=== PATIENT | male | born 1995 | race Caucasian/White ===

== ENCOUNTER 2021-08-18 22:02 | Emergency (ER) | payer SELFPAY ==
[2021-08-18] MEDS ORDERED: morphine INJ 10 MG/ML 1ML (SYR OR VIAL) IVP STA (22:21)
[2021-08-18 22:25] LABS: BASOPHILS # (AUTO) 0.1 10^3/uL (0.0-0.1); BASOPHILS % (AUTO) 1 % (0-10); EOSINOPHILS # (AUTO) 0.5 10^3/uL (0.0-0.3); EOSINOPHILS % (AUTO) 4 % (0-10); HEMATOCRIT 47 % (40-54); HEMOGLOBIN 15.5 g/dL (13.3-17.7); LYMPHOCYTES # (AUTO) 3.4 X 10^3 (1.0-4.0); LYMPHOCYTES % (AUTO) 30 % (12-44); MEAN CORPUSCULAR HEMOGLOBIN 29 pg (25-34); MEAN CORPUSCULAR HGB CONC 33 g/dL (32-36); MEAN CORPUSCULAR VOLUME 87 fL (80-99); MEAN PLATELET VOLUME 9.3 fL (9.0-12.2); MONOCYTES % (AUTO) 9 % (0-12); NEUTROPHILS # (AUTO) 6.6 X 10^3 (1.8-7.8); NEUTROPHILS % (AUTO) 57 % (42-75); PLATELET COUNT 418 10^3/uL (130-400); WHITE BLOOD COUNT 11.6 10^3/uL (4.3-11.0)
[2021-08-18] MEDS ORDERED: NS IV 1000 ML 1,000 ML IV SCH (22:30)
[2021-08-18] MEDS ORDERED: ONDANSETRON 4 MG/2 ML (SDV) Z0FRAN IVP ONE (22:30)
[2021-08-18] MEDS ORDERED: KETOROLAC 30 MG/ML VIAL IVP ONE (22:30)
[2021-08-18 22:39] LABS: ALBUMIN 3.8 GM/DL (3.2-4.5); BILIRUBIN,TOTAL 0.2 MG/DL (0.1-1.0); CREATININE SERUM 1.05 MG/DL (0.60-1.30); POTASSIUM 3.7 MMOL/L (3.6-5.0); TOTAL PROTEIN 7.6 GM/DL (6.4-8.2)
--- NOTE | 2021-08-18 22:51 | Diagnostic Imaging Report ---
PROCEDURE: CT abdomen and pelvis without contrast. TECHNIQUE: Multiple contiguous axial images were obtained through the abdomen and pelvis without the use of intravenous contrast. Auto Exposure Controls were utilized during the CT exam to meet ALARA standards for radiation dose reduction. INDICATION: Right flank pain. COMPARISON: There is no prior study available for comparison. FINDINGS: There is a 3.5 mm calculus in the proximal right ureter. The ureter proximal to the calculus is slightly dilated and there is mild hydronephrosis of the right kidney. This appearance would be consistent with partial obstruction of the right collecting system due to the aforementioned calculus. There is no evidence for nephrolithiasis or urolithiasis on the left. The urinary bladder is grossly unremarkable. There is no pelvic mass or free fluid collection evident. The prostate gland is not enlarged. The appendix was not well-visualized but there are no indirect signs of acute appendicitis. The liver, spleen, pancreas, adrenals, aorta and inferior vena cava show no sign of an acute abnormality. The gallbladder is not fully distended. Conversely the stomach is filled with fluid and particulate matter. The lung bases are clear. The bone windows show no sign of a fracture or a destructive lesion. IMPRESSION: 1. There is partial obstruction of the right collecting system due to a 3.5 mm calculus in the proximal right ureter. 2. There is no acute abnormality of the abdomen or pelvis noted otherwise. Dictated by: Dictated on workstation # [id number]
[2021-08-18] MEDS ORDERED: ACHD5005 PO (23:01)
[2021-08-18] MEDS ORDERED: ONDA4TAB11 PO (23:01)
--- NOTE | 2021-08-18 23:01 | ED Abdominal Pain ---
General Chief Complaint: Abdominal/GI Problems Stated Complaint: RT TESTICULAR PAIN;ABD PAIN Nursing Triage Note: Pt complaining of RLQ pain radiating to right flank Source of Information: Patient Exam Limitations: No Limitations History of Present Illness Date Seen by Provider: Aug 18, 2021 Time Seen by Provider: 21:45 Initial Comments Patient is a 25-year-old male who presents with acute onset right flank pain starting 3 hours prior to ED arrival. Pain is mid flank radiates to right groin and testicle. Pain is moderate to severe and is not reproduced with palpation and movement relieved by rest. Associated symptoms include nausea. Pain does wax and wane. No constipation diarrhea, no urinary frequency urgency dysuria or hematuria. No testicular tenderness swelling or masses. No fever chills sweats. No other symptoms or complaints. Timing/Duration: 1-3 Hours Severity/Quality: Dull Location: Flank Radiation: Groin Activities at Onset: Other Modifying Factors: Improves With Other Associated Symptoms: Other Allergies and Home Medications Allergies Coded Allergies: alprazolam (Verified Allergy, Unknown, 08/18/21) Patient Home Medication List Home Medication List Reviewed: Yes Review of Systems Review of Systems Constitutional: no symptoms reported EENTM: See HPI Respiratory: See HPI Cardiovascular: See HPI Gastrointestinal: See HPI Genitourinary: See HPI Musculoskeletal: see HPI Skin: see HPI Psychiatric/Neurological: See HPI Endocrine: See HPI Hematologic/Lymphatic: See HPI All Other Systems Reviewed Negative Unless Noted: Yes Past Szvhviv-Qcwvij-Kpsbua Hx Patient Social History Tobacco Use?: Yes Use of E-Cig and/or Vaping dev: Yes E-Cig or Vaping type used: Nicotine Substance use?: No Alcohol Use?: No Pt feels they are or have been: No Physical Exam Vital Signs Vital Signs - First Documented 08/18/21 22:08 Temp 36.4 Pulse 67 Resp 16 B/P (MAP) 150/78 (102) Pulse Ox 100 O2 Delivery Room Air Capillary Refill : Less Than 3 Seconds Height/Weight/BMI Height: '" Weight: lbs. oz. kg; BMI Method: General Appearance: moderate distress HEENT: PERRL/EOMI Neck: full range of motion Respiratory: lungs clear Cardiovascular: regular rate, rhythm, no edema Gastrointestinal: non tender, soft Back: normal inspection, no CVA tenderness Focused Exam Sepsis Stage: Ruled Out Progress/Results/Core Measures Results/Orders Lab Results Laboratory Tests Test 08/18/21 22:10 Range/Units White Blood Count 11.6 H 4.3-11.0 10^3/uL Red Blood Count 5.40 4.30-5.52 10^6/uL Hemoglobin 15.5 13.3-17.7 g/dL Hematocrit 47 40-54 % Mean Corpuscular Volume 87 80-99 fL Mean Corpuscular Hemoglobin 29 25-34 pg Mean Corpuscular Hemoglobin Concent 33 32-36 g/dL Red Cell Distribution Width 12.8 10.0-14.5 % Platelet Count 418 H 130-400 10^3/uL Mean Platelet Volume 9.3 9.0-12.2 fL Immature Granulocyte % (Auto) 0 % Neutrophils (%) (Auto) 57 42-75 % Lymphocytes (%) (Auto) 30 12-44 % Monocytes (%) (Auto) 9 0-12 % Eosinophils (%) (Auto) 4 0-10 % Basophils (%) (Auto) 1 0-10 % Neutrophils # (Auto) 6.6 1.8-7.8 X 10^3 Lymphocytes # (Auto) 3.4 1.0-4.0 X 10^3 Monocytes # (Auto) 1.0 0.0-1.0 X 10^3 Eosinophils # (Auto) 0.5 H 0.0-0.3 10^3/uL Basophils # (Auto) 0.1 0.0-0.1 10^3/uL Immature Granulocyte # (Auto) 0.0 0.0-0.1 10^3/uL Sodium Level 140 135-145 MMOL/L Potassium Level 3.7 3.6-5.0 MMOL/L Chloride Level 103 98-107 MMOL/L Carbon Dioxide Level 25 21-32 MMOL/L Anion Gap 12 5-14 MMOL/L Blood Urea Nitrogen 13 7-18 MG/DL Creatinine 1.05 0.60-1.30 MG/DL Estimat Glomerular Filtration Rate 88 BUN/Creatinine Ratio 12 Glucose Level 107 H 70-105 MG/DL Calcium Level 9.0 8.5-10.1 MG/DL Corrected Calcium 9.2 8.5-10.1 MG/DL Total Bilirubin 0.2 0.1-1.0 MG/DL Aspartate Amino Transf (AST/SGOT) 22 5-34 U/L Alanine Aminotransferase (ALT/SGPT) 30 0-55 U/L Alkaline Phosphatase 106 40-136 U/L Total Protein 7.6 6.4-8.2 GM/DL Albumin 3.8 3.2-4.5 GM/DL My Orders Orders - VLAD LEES DO Cbc With Automated Diff (08/18/21 22:21) Comprehensive Metabolic Panel (08/18/21 22:21) Ua Culture If Indicated (08/18/21 22:21) Ct Abdomen/Pelvis Wo (08/18/21 22:21) Morphine Injection (Morphine Injection (08/18/21 22:21) Ondansetron Injection (Zofran Injectio (08/18/21 22:30) Ketorolac Injection (Toradol Injection) (08/18/21 22:30) Ns Iv 1000 Ml (Sodium Chloride 0.9%) (08/18/21 22:30) Medications Given in ED Current Medications Medications Dose Ordered Sig/Victor Manuel Route Start Time Stop Time Status Last Admin Dose Admin Ketorolac Tromethamine 30 mg ONCE ONCE IVP 08/18/21 22:30 08/18/21 22:31 DC 08/18/21 22:40 30 MG Ondansetron HCl 4 mg ONCE ONCE IVP 08/18/21 22:30 08/18/21 22:31 DC 08/18/21 22:40 4 MG Vital Signs/I&O 08/18/21 22:08 Temp 36.4 Pulse 67 Resp 16 B/P (MAP) 150/78 (102) Pulse Ox 100 O2 Delivery Room Air Blood Pressure Mean: 102 Departure Communication (Admissions) CT abdomen pelvis without contrast: Partially obstructing 3.5 mm right mid ureteral stone Pain addressed improved with treatment. CT findings consistent with small ureteral stone. Recommendations for supportive care watchful waiting and PCP follow-up. Return precautions reviewed. Patient verbalizes understanding agreement discharge instructions prior to departure. Impression Primary Impression: Acute right flank pain Additional Impression: Right ureteral stone Disposition: 01 HOME, SELF-CARE Condition: Stable Departure-Patient Inst. Decision time for Depature: 22:59 Referrals: NO,LOCAL PHYSICIAN (PCP/Family) Primary Care Physician Patient Instructions: Kidney Stones (DC) Add. Discharge Instructions: Please increase fluids and take ibuprofen for pain hydrocodone for additional relief and Zofran as needed for nausea. Follow-up with your PCP in 3 to 5 days for reevaluation. Return to the ED if new or worsening symptoms peer All discharge instructions reviewed with patient and/or family. Voiced understanding. Scripts Hydrocodone/Acetaminophen (Hydrocodone-Acetamin 5-325 mg) 1 Each Tablet 1 TAB PO Q4H PRN for PAIN-MODERATE (5-7), #10 TAB Prov: VLAD LEES DO 08/18/21 Ondansetron (Ondansetron Odt) 4 Mg Tab.rapdis 4 MG PO Q4M, #10 TAB Prov: VLAD LEES DO 08/18/21 VLAD LEES DO Aug 18, 2021 23:01
[2021-08-18 23:04] LABS: BACTERIA,URINE NEGATIVE /HPF; BILIRUBIN,URINE 1+ (NEGATIVE); CLARITY,URINE CLOUDY; COLOR,URINE BROWN; GLUCOSE, URINE (UA) NEGATIVE (NEGATIVE); KETONES,URINE NEGATIVE (NEGATIVE); LEUKOCYTE ESTERASE ,URINE NEGATIVE (NEGATIVE); NITRITE,URINE NEGATIVE (NEGATIVE); PH,URINE 5.5 (5-9); PROTEIN,URINE 1+ (NEGATIVE); RBC,URINE TNTC /HPF
[2021-08-18 23:09] VITALS: BP 150/78
--- OUTSIDE RECORDS SUMMARY | 2021-08-20 11:46 | XMS REPORT | Clinical Summary ---
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 No t asked How many drinks containing alcohol do you have on No t asked a typical day when you are drinking? How often do you have six or more drinks on one Not asked occasion? 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 Blood Pressure 78 10/23/2020 8:59 PM ASPHALT MACHINE OPERATOR Pulse 36.7 C (98.1 F) 10/23/2020 8:09 PM ASPHALT MACHINE OPERATOR Temperature 18 10/23/2020 8:59 PM ASPHALT MACHINE OPERATOR Respiratory Rate 97% 10/23/2020 8:59 PM ASPHALT MACHINE OPERATOR Oxygen Saturation - - Inhaled Oxygen Concentration 113 kg (249 lb 1.9 oz) 10/23/2020 8:09 PM ASPHALT MACHINE OPERATOR Weight 175.3 cm (5' 9") 10/23/2020 8:09 PM ASPHALT MACHINE OPERATOR Height 36.79 10/23/2020 8:09 PM ASPHALT MACHINE OPERATOR Body Mass Index Plan of Treatment Health Maintenance Due Date Last Done Comments Td/Tdap# 1997 Tobacco Cessation 1997 Counseling # Pneumococcal Vaccine: 2003 Pediatrics (0 to 5 Years) and At-Risk Patients (6 to 64 Years) (1 of 2 - PPSV23) HPV Vaccine (1 - Male 2008 2-dose series) COVID-19 Vaccine (1) 2009 Influenza Vaccine (#1) 2021 Results Not on filefrom Last 3 Months Advance Directives For more information, please contact: [phone] Patient Mouthpiece Maker Explanation Type Date Recorded Health Care Directive
== END 2021-08-18 23:29 | disposition home or self-care (01) ==
LOC: ER FS 22:06
DX: N13.2 Hydronephrosis with renal and ureteral calculous obstruction (principal); Z72.0 Tobacco use
CPT/HCPCS: 36415; 74176; 80053; 81000; 85025

== ENCOUNTER 2021-09-03 07:08 | Emergency (ER) | payer SELFPAY ==
[~2021-09-03] VITALS: Ht 175 cm; Wt 120.0 kg
[~2021-09-03 07:08] MED LIST: ACHD5005 PO; ONDA4TAB11 PO
[2021-09-03] MEDS ORDERED: KETOROLAC 30 MG/ML VIAL IVP ONE (07:30)
[2021-09-03] MEDS ORDERED: NS IV 1000 ML 1,000 ML IV SCH (07:30)
[2021-09-03] MEDS ORDERED: fentaNYL INJ 100 MCG/2 ML AMP IVP ONE (07:30)
[2021-09-03] MEDS ORDERED: ONDANSETRON 4 MG/2 ML (SDV) Z0FRAN IVP ONE (07:30)
[2021-09-03 07:37] LABS: BILIRUBIN,URINE NEGATIVE (NEGATIVE); CLARITY,URINE SL CLOUDY; COLOR,URINE YELLOW; GLUCOSE, URINE (UA) NEGATIVE (NEGATIVE); KETONES,URINE TRACE (NEGATIVE); LEUKOCYTE ESTERASE ,URINE NEGATIVE (NEGATIVE); NITRITE,URINE NEGATIVE (NEGATIVE); PH,URINE 6.5 (5-9); PROTEIN,URINE NEGATIVE (NEGATIVE)
[2021-09-03 07:43] LABS: EOSINOPHILS % (AUTO) 1 % (0-10); HEMATOCRIT 48 % (40-54); HEMOGLOBIN 15.9 g/dL (13.3-17.7); LYMPHOCYTES % (AUTO) 10 % (12-44); MEAN CORPUSCULAR HEMOGLOBIN 28 pg (25-34); MEAN CORPUSCULAR HGB CONC 33 g/dL (32-36); MEAN CORPUSCULAR VOLUME 86 fL (80-99); MEAN PLATELET VOLUME 9.5 fL (9.0-12.2); MONOCYTES % (AUTO) 6 % (0-12); NEUTROPHILS % (AUTO) 81 % (42-75); PLATELET COUNT 424 10^3/uL (130-400); WHITE BLOOD COUNT 16.7 10^3/uL (4.3-11.0)
[2021-09-03 07:44] LABS: BASOPHILS # (AUTO) 0.1 10^3/uL (0.0-0.1); BASOPHILS % (AUTO) 1 % (0-10); EOSINOPHILS # (AUTO) 0.2 10^3/uL (0.0-0.3); LYMPHOCYTES # (AUTO) 1.7 X 10^3 (1.0-4.0); NEUTROPHILS # (AUTO) 13.6 X 10^3 (1.8-7.8)
--- NOTE | 2021-09-03 07:49 | ED General ---
General Chief Complaint: Abdominal/GI Problems Stated Complaint: VOMITING; LRQ/RT FLANK PAIN Nursing Triage Note: Patient has presented to ER with cc of right sided abd pain, right flank pain, right testicle pain and nausea and vomiting. History of Present Illness Date Seen by Provider: Sep 03, 2021 Time Seen by Provider: 07:47 Initial Comments Patient presenting to emergency department for evaluation of continued right flank and abdomen pain with nausea and vomiting. He was diagnosed with a right mid ureter calculus measured at 3.5 mm on August 18 and said that he was not having a significant amount of pain until this morning. He says the pain does radiate towards his testicle but he denies any fevers chills dysuria hematuria. I asked him if he followed up with anyone regarding his kidney stone and he said he did not know he was supposed to follow-up with anyone. He is in no acute distress with normal vital signs. Allergies and Home Medications Allergies Coded Allergies: alprazolam (Verified Allergy, Unknown, 08/18/21) Patient Home Medication List Home Medication List Reviewed: Yes Hydrocodone/Acetaminophen (Hydrocodone-Acetamin 5-325 mg) 1 Each Tablet, 1 TAB PO Q4H PRN for PAIN-MODERATE (5-7) Prescribed by: VLAD LEES on 08/18/212300 Ondansetron (Ondansetron Odt) 4 Mg Tab.rapdis, 4 MG PO Q4M Prescribed by: VLAD LEES on 08/18/212300 Review of Systems Review of Systems Constitutional: no symptoms reported EENTM: no symptoms reported Respiratory: no symptoms reported Cardiovascular: no symptoms reported Gastrointestinal: abdominal pain, nausea, vomiting Genitourinary: other (Testicle pain) Musculoskeletal: back pain Skin: no symptoms reported Psychiatric/Neurological: No Symptoms Reported All Other Systems Reviewed Negative Unless Noted: Yes Past Dzofwrj-Opfnzm-Jqgdnv Hx Patient Social History Tobacco Use?: No Use of E-Cig and/or Vaping dev: Yes E-Cig or Vaping type used: Nicotine Use of E-Cig and/or Vaping Alfred: Current Everyday User Substance use?: No Alcohol Use?: Yes Alcohol Frequency: Once in a while Physical Exam Vital Signs Vital Signs - First Documented 09/03/21 07:30 Temp 35.0 Pulse 66 Resp 22 B/P (MAP) 140/71 (94) Pulse Ox 99 O2 Delivery Room Air Capillary Refill : Height, Weight, BMI Height: '" Weight: lbs. oz. kg; 39.00 BMI Method: General Appearance: No Apparent Distress, WD/WN Respiratory: No Respiratory Distress Cardiovascular: Regular Rate, Rhythm Gastrointestinal: Non Tender, Soft Back: Normal Inspection Extremity: Normal Capillary Refill Neurologic/Psychiatric: Alert, Oriented x3 Skin: Warm/Dry Progress/Results/Core Measures Suspected Sepsis SIRS Temperature: Pulse: 66 Respiratory Rate: 22 Laboratory Tests 09/03/21 07:22: White Blood Count 16.7H Blood Pressure 140 /71 Mean: 94 Laboratory Tests 09/03/21 07:22: Creatinine 1.21, Platelet Count 424H, Total Bilirubin 0.3 Results/Orders Lab Results Laboratory Tests Test 09/03/21 07:10 09/03/21 07:22 Range/Units Urine Color YELLOW Urine Clarity SL CLOUDY Urine pH 6.5 5-9 Urine Specific [place] 1.025 H 1.016-1.022 Urine Protein NEGATIVE NEGATIVE Urine Glucose (UA) NEGATIVE NEGATIVE Urine Ketones TRACE H NEGATIVE Urine Nitrite NEGATIVE NEGATIVE Urine Bilirubin NEGATIVE NEGATIVE Urine Urobilinogen 0.2 < = 1.0 MG/DL Urine Leukocyte Esterase NEGATIVE NEGATIVE Urine RBC (Auto) 3+ H NEGATIVE Urine RBC >100 H /HPF Urine WBC 0-2 /HPF Urine Squamous Epithelial Cells RARE /HPF Urine Crystals NONE /LPF Urine Bacteria NEGATIVE /HPF Urine Casts NONE /LPF Urine Mucus LARGE H /LPF Urine Culture Indicated NO White Blood Count 16.7 H 4.3-11.0 10^3/uL Red Blood Count 5.61 H 4.30-5.52 10^6/uL Hemoglobin 15.9 13.3-17.7 g/dL Hematocrit 48 40-54 % Mean Corpuscular Volume 86 80-99 fL Mean Corpuscular Hemoglobin 28 25-34 pg Mean Corpuscular Hemoglobin Concent 33 32-36 g/dL Red Cell Distribution Width 12.2 10.0-14.5 % Platelet Count 424 H 130-400 10^3/uL Mean Platelet Volume 9.5 9.0-12.2 fL Immature Granulocyte % (Auto) 1 % Neutrophils (%) (Auto) 81 H 42-75 % Lymphocytes (%) (Auto) 10 L 12-44 % Monocytes (%) (Auto) 6 0-12 % Eosinophils (%) (Auto) 1 0-10 % Basophils (%) (Auto) 1 0-10 % Neutrophils # (Auto) 13.6 H 1.8-7.8 X 10^3 Lymphocytes # (Auto) 1.7 1.0-4.0 X 10^3 Monocytes # (Auto) 1.0 0.0-1.0 X 10^3 Eosinophils # (Auto) 0.2 0.0-0.3 10^3/uL Basophils # (Auto) 0.1 0.0-0.1 10^3/uL Immature Granulocyte # (Auto) 0.1 0.0-0.1 10^3/uL Neutrophils % (Manual) 77 % Lymphocytes % (Manual) 8 % Monocytes % (Manual) 7 % Eosinophils % (Manual) 0 % Basophils % (Manual) 1 % Band Neutrophils 4 % Atypical Lymphocytes 3 % Platelet Estimate INCREASED Blood Morphology Comment NORMAL Sodium Level 138 135-145 MMOL/L Potassium Level 4.2 3.6-5.0 MMOL/L Chloride Level 101 98-107 MMOL/L Carbon Dioxide Level 24 21-32 MMOL/L Anion Gap 13 5-14 MMOL/L Blood Urea Nitrogen 13 7-18 MG/DL Creatinine 1.21 0.60-1.30 MG/DL Estimat Glomerular Filtration Rate 74 BUN/Creatinine Ratio 11 Glucose Level 120 H 70-105 MG/DL Calcium Level 9.4 8.5-10.1 MG/DL Corrected Calcium 9.2 8.5-10.1 MG/DL Total Bilirubin 0.3 0.1-1.0 MG/DL Aspartate Amino Transf (AST/SGOT) 20 5-34 U/L Alanine Aminotransferase (ALT/SGPT) 24 0-55 U/L Alkaline Phosphatase 101 40-136 U/L Total Protein 8.4 H 6.4-8.2 GM/DL Albumin 4.2 3.2-4.5 GM/DL My Orders Orders - TONY FLEMING DO Iv/Invasive Line Insertion .IV start (09/03/21 07:18) Cbc With Automated Diff (09/03/21 07:18) Comprehensive Metabolic Panel (09/03/21 07:18) Ua Culture If Indicated (09/03/21 07:18) Ct Abdomen/Pelvis Wo (09/03/21 07:18) Ondansetron Injection (Zofran Injectio (09/03/21 07:30) Ns Iv 1000 Ml (Sodium Chloride 0.9%) (09/03/21 07:30) Ketorolac Injection (Toradol Injection) (09/03/21 07:30) Fentanyl Inj (Sublimaze Injection) (09/03/21 07:30) Manual Differential (09/03/21 07:22) Medications Given in ED Current Medications Medications Dose Ordered Sig/Victor Manuel Route Start Time Stop Time Status Last Admin Dose Admin Fentanyl Citrate 75 mcg ONCE ONCE IVP 09/03/21 07:30 09/03/21 07:31 DC 09/03/21 07:39 75 MCG Ketorolac Tromethamine 15 mg ONCE ONCE IVP 09/03/21 07:30 09/03/21 07:31 DC 09/03/21 07:38 15 MG Ondansetron HCl 4 mg ONCE ONCE IVP 09/03/21 07:30 12 07:31 DC 09/03/21 07:37 4 MG Vital Signs/I&O 09/03/21 07:30 Temp 35.0 Pulse 66 Resp 22 B/P (MAP) 140/71 (94) Pulse Ox 99 O2 Delivery Room Air Capillary Refill : Blood Pressure Mean: 94 Progress Note : Progress Note Patient has symptoms consistent with continued kidney stone that may have not passed. I will check labs imaging treat symptoms and reassess. Patient has continued right ureter calculus however it appears to be distal at this time and there is mild hydronephrosis and hydroureter. There is no signs of infection on his urinalysis despite the leukocytosis which is likely stress and vomiting response. Patient has similar creatinine to his last level with no signs of renal insufficiency at this time. Patient has resolved pain and nausea in the emergency department and was able to tolerate fluids by mouth with no difficulty. I discussed inpatient versus outpatient care and he said he would like to go home and try and pass the stone on his own rather than having intervention done but told him given he has had the stone for more than 2 weeks now it is very likely he will need intervention and that he should call the urologist to arrange follow-up. Patient will be discharged in stable condition with supportive medications and told to come back to emergency department sooner with worsening pain fevers vomiting or other general concerns. Patient aware and agreeable with plan and verbalized understanding of the above instructions. Departure Impression Primary Impression: Right ureteral stone Additional Impressions: Hydronephrosis, right Hematuria Disposition: 01 HOME, SELF-CARE Condition: Stable Departure-Patient Inst. Referrals: NO,LOCAL PHYSICIAN (PCP) Primary Care Physician DESTINY BERG MD Patient Instructions: Renal Colic (DC) Add. Discharge Instructions: Take 600mg of ibuprofen every 6 hours for pain. Percocet for breakthrough pain. Follow with the urologist. All discharge instructions reviewed with patient and/or family. Voiced understanding. Scripts Ondansetron (Ondansetron Odt) 4 Mg Tab.rapdis 4 MG PO Q6H PRN for NAUSEA/VOMITING-1ST LINE, #20 TAB Prov: TONY FLEMING DO 09/03/21 Oxycodone HCl/Acetaminophen (Percocet 5-325 mg Tablet) 1 Each Tablet 1 TAB PO Q4H for PAIN-MODERATE MDD 6 TABS for 7 Days, #20 TAB Prov: TONY FLEMING DO 09/03/21 Tamsulosin HCl (Flomax) 0.4 Mg Cap 0.4 MG PO DAILY for 7 Days, #7 CAP Prov: TONY FLEMING DO 09/03/21 Work/School Note: Work Release Form Date Seen in the Emergency Department: Sep 03, 2021 Return to Work: Sep 05, 2021 Restrictions: No Restrictions TONY FLEMING DO Sep 03, 2021 07:49
[2021-09-03 07:50] LABS: BACTERIA,URINE NEGATIVE /HPF; RBC,URINE >100 /HPF; SQUAMOUS EPITHELIAL CELL,UR RARE /HPF; WBC,URINE 0-2 /HPF
[2021-09-03 07:55] LABS: BILIRUBIN,TOTAL 0.3 MG/DL (0.1-1.0); CALCIUM 9.4 MG/DL (8.5-10.1); CREATININE SERUM 1.21 MG/DL (0.60-1.30); POTASSIUM 4.2 MMOL/L (3.6-5.0)
[2021-09-03 07:56] LABS: ALBUMIN 4.2 GM/DL (3.2-4.5); TOTAL PROTEIN 8.4 GM/DL (6.4-8.2)
--- NOTE | 2021-09-03 07:56 | Diagnostic Imaging Report ---
PROCEDURE: CT abdomen and pelvis without contrast. TECHNIQUE: Multiple contiguous axial images were obtained through the abdomen and pelvis without the use of intravenous contrast. Auto Exposure Controls were utilized during the CT exam to meet ALARA standards for radiation dose reduction. INDICATION: Flank and abdominal pain COMPARISON: 08/18/2021 FINDINGS: Unenhanced images of the liver, gallbladder, pancreas, adrenal glands and spleen are unremarkable. No renal abnormality is identified apart from mild right hydronephrosis and hydroureter to the level of and approximately 0.3 cm calculus at the right ureterovesical junction. Bladder is decompressed and otherwise unremarkable in appearance. There is no evidence of focal inflammation or organized fluid collection. The appendix has a normal appearance. No pathologically enlarged adenopathy is identified. Left testis resides within the inguinal canals. IMPRESSION: At least partially obstructing 0.3 cm distal right ureteric stone with mild right hydronephrosis and hydroureter. Dictated by: Dictated on workstation # [id number]
[2021-09-03 08:03] LABS: ATYPICAL LYMPHOCYTES 3 %; BAND NEUTROPHILS 4 %; BASOPHILS % (MANUAL) 1 %; EOSINOPHILS % (MANUAL) 0 %; LYMPHOCYTES % (MANUAL) 8 %; MONOCYTES % (MANUAL) 7 %; NEUTROPHILS % (MANUAL) 77 %
[2021-09-03 08:04] LABS: PLATELET ESTIMATE INCREASED; RBC MORPH NORMAL
[2021-09-03] MEDS ORDERED: OXYC1TAB87 PO (08:18)
[2021-09-03] MEDS ORDERED: TMSL.4C PO (08:18)
[2021-09-03] MEDS ORDERED: ONDA4TAB11 PO (08:18)
[2021-09-03 08:59] VITALS: BP 117/61
== END 2021-09-03 08:25 | disposition home or self-care (01) ==
LOC: EDUNIT# 07:08 → ER FS 07:09
DX: N13.2 Hydronephrosis with renal and ureteral calculous obstruction (principal); R31.9 Hematuria, unspecified; F17.290 Nicotine dependence, other tobacco product, uncomplicated
CPT/HCPCS: 36415; 74176; 80053; 81000; 85007; 85027

== ENCOUNTER 2021-11-30 18:04 | Emergency (ER) | payer BC ==
[~2021-11-30] VITALS: Ht 175.2 cm; Wt 107.0 kg
[~2021-11-30 18:04] MED LIST changes: +OXYC1TAB87 PO; +TMSL.4C PO
--- NOTE | 2021-11-30 18:21 | ED Integumentary General ---
General Chief Complaint: Bite-Animal/Human/Insect Stated Complaint: LT LEG SPIDER BITE History of Present Illness Date Seen by Provider: Nov 30, 2021 Time Seen by Provider: 18:16 Initial Comments 26-year-old male presents with some "sores" on his lateral left leg. He noticed a started couple days ago. He was concerned that one might be a spider bite. He tried to open it with a knife but nothing came out. He does have a history of MRSA and this is how it typically starts. He denies any fever, chills or other systemic complaints. Allergies and Home Medications Allergies Coded Allergies: alprazolam (Verified Allergy, Unknown, 08/18/21) Patient Home Medication List Home Medication List Reviewed: Yes Hydrocodone/Acetaminophen (Hydrocodone-Acetamin 5-325 mg) 1 Each Tablet, 1 TAB PO Q4H PRN for PAIN-MODERATE (5-7) Prescribed by: VLAD LEES on 08/18/212300 Ondansetron (Ondansetron Odt) 4 Mg Tab.rapdis, 4 MG PO Q4M Prescribed by: VLAD LEES on 08/18/212300 Ondansetron (Ondansetron Odt) 4 Mg Tab.rapdis, 4 MG PO Q6H PRN for NAUSEA/VOMITING-1ST LINE Prescribed by: TONY FLEMING on 09/03/21817 Oxycodone HCl/Acetaminophen (Percocet 5-325 mg Tablet) 1 Each Tablet, 1 TAB PO Q4H Prescribed by: TONY FLEMING on 09/03/21817 Tamsulosin HCl (Flomax) 0.4 Mg Cap, 0.4 MG PO DAILY Prescribed by: TONY FLEMING on 09/03/21817 Review of Systems Review of Systems Constitutional: No chills, No fever EENTM: no symptoms reported Respiratory: no symptoms reported Cardiovascular: no symptoms reported Genitourinary: no symptoms reported Musculoskeletal: no symptoms reported Skin: see HPI Psychiatric/Neurological: No Symptoms Reported Endocrine: No Symptoms Reported Physical Exam Vital Signs Capillary Refill : General Appearance: WD/WN, no apparent distress Neck: full range of motion, supple Cardiovascular: normal peripheral pulses, regular rate, rhythm Respiratory: lungs clear, normal breath sounds Gastrointestinal: non tender, soft Extremities: normal range of motion Neurologic/Psychiatric: alert, normal mood/affect, oriented x 3 Skin Problem Location: lower extremities (Left lateral thigh) Skin Problem Character: abscess (Induration with some mild surrounding cellulitis), erythema Progress/Results/Core Measures Progress Progress Note : Progress Note Patient with what appears to be a mild early cellulitis with a small early abscess formation. We will start him on some Bactrim. Recommend use warm moist heat. He is to follow-up with a primary care provider and 10 days if symptoms not improving Departure Impression Primary Impression: Subcutaneous abscess Qualified Codes: L02.416 - Cutaneous abscess of left lower limb Disposition: HOME, SELF-CARE Condition: Stable Departure-Patient Inst. Referrals: NO,LOCAL PHYSICIAN (PCP/Family) Primary Care Physician Patient Instructions: Methicillin-Resistant Staphylococcus aureus (MRSA), Skin Abscess Add. Discharge Instructions: Keep clean with warm soapy water Warm moist heat to affected area All discharge instructions reviewed with patient and/or family. Voiced understanding. Scripts Sulfamethoxazole/Trimethoprim (Bactrim Ds Tablet) 1 Each Tablet 1 EACH PO BID for 10 Days, #20 TAB Prov: JEFFERY BAUTISTA DO 11/30/21 JEFFERY BAUTISTA DO Nov 30, 2021 18:21
[2021-11-30] MEDS ORDERED: SULF1TAB38 PO (18:23)
[2021-11-30 18:29] VITALS: BP 135/66
== END 2021-11-30 18:29 | disposition home or self-care (01) ==
LOC: EDUNIT# 18:04 → ER FS 18:06
DX: L02.416 Cutaneous abscess of left lower limb (principal)
CPT/HCPCS: 99283

== ENCOUNTER 2022-01-21 08:54 | Emergency (ER) | payer BC ==
[~2022-01-21] VITALS: Ht 177.8 cm; Wt 108.9 kg
[~2022-01-21 08:54] MED LIST changes: +SULF1TAB38 PO
[2022-01-21] MEDS ORDERED: NS IV 1000 ML 1,000 ML IV STA (09:13)
[2022-01-21] MEDS ORDERED: ONDANSETRON 4 MG/2 ML (SDV) Z0FRAN IVP STA (09:13)
--- NOTE | 2022-01-21 09:19 | ED GI ---
General Chief Complaint: Abdominal/GI Problems Stated Complaint: VOMITING Source of Information: Patient, Other (significant other) History of Present Illness Date Seen by Provider: Jan 21, 2022 Time Seen by Provider: 08:58 Initial Comments 26-year-old male presenting with complaints of loose stools that started last night and 3 episodes of vomiting this morning. He has not eaten anything different or new. His significant other has eaten the same thing since she has not gotten sick. He states that he still has issues with his taste and smell since having COVID in September. He does not have any abdominal pain. He has had no shortness of breath, cough, nasal congestion, sore throat, headache, chest pain, pain with urination. He had some sore muscles from working on a vehicle over the weekend. He was at work this morning when he was vomiting and his employer made him come be checked out. He states he does not have a primary care provider. Timing/Duration: 12-24 Hours Activities at Onset: None Modifying Factors: Worsens With Eating Associated Symptoms: No Back Pain, No Chest Pain, No Diaphoresis, No Fever/Chills, No Fatigue, No Headache, No Heartburn; Nausea/Vomiting; No Rash, No Shortness of Air, No Swelling/Mass in Abdomen, No Syncope, No Weakness Allergies and Home Medications Allergies Coded Allergies: alprazolam (Verified Allergy, Unknown, 08/18/21) Patient Home Medication List Home Medication List Reviewed: Yes Ondansetron (Ondansetron Odt) 4 Mg Tab.rapdis, 4 MG PO Q6H PRN for NAUSEA/VOMITING Prescribed by: NISREEN LAU on 01/21/22 1007 Discontinued Medications Hydrocodone/Acetaminophen (Hydrocodone-Acetamin 5-325 mg) 1 Each Tablet, 1 TAB PO Q4H PRN for PAIN-MODERATE (5-7) Prescribed by: VLAD LEES on 08/18/212300 Last Action: Discontinued Ondansetron (Ondansetron Odt) 4 Mg Tab.rapdis, 4 MG PO Q4M Prescribed by: VLAD LEES on 08/18/212300 Last Action: Discontinued Ondansetron (Ondansetron Odt) 4 Mg Tab.rapdis, 4 MG PO Q6H PRN for NAUSEA/VOMITING-1ST LINE Prescribed by: TONY FLEMING on 09/03/21817 Last Action: Discontinued Oxycodone HCl/Acetaminophen (Percocet 5-325 mg Tablet) 1 Each Tablet, 1 TAB PO Q4H Prescribed by: TONY FLEMING on 09/03/21817 Last Action: Discontinued Sulfamethoxazole/Trimethoprim (Bactrim Ds Tablet) 1 Each Tablet, 1 EACH PO BID Prescribed by: JEFFERY BAUTISTA on 11/30/211822 Last Action: Discontinued Tamsulosin HCl (Flomax) 0.4 Mg Cap, 0.4 MG PO DAILY Prescribed by: TONY FLEMING on 09/03/21817 Last Action: Discontinued Review of Systems Review of Systems Constitutional: No chills, No diaphoresis, No dizziness, No fever EENTM: No Blurred Vision, No Double Vision, No Nose Congestion, No Throat Pain; Other (Since September he has been having issues with his taste and smell that have not resolved since he had COVID.) Respiratory: Denies Cough, Denies Shortness of Air Cardiovascular: Denies Chest Pain Gastrointestinal: Denies Abdominal Pain, Denies Constipated; Diarrhea, Nausea, Vomiting Genitourinary: Denies Burning, Denies Frequency, Denies Pain Musculoskeletal: muscle pain (Sore muscles in his legs and low back from working on a car this weekend) Skin: No rash Psychiatric/Neurological: Denies Headache Endocrine: No Symptoms Reported Hematologic/Lymphatic: No Symptoms Reported Past Ivddnbr-Xazaca-Hiofew Hx Patient Social History Tobacco Use?: No Use of E-Cig and/or Vaping dev: Yes E-Cig or Vaping type used: Nicotine, Synthetic Cannabinoids Substance use?: Yes Substance type: Nicotine Alcohol Use?: Yes 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 oz. kg; 34.00 BMI Method: General Appearance: WD/WN, no apparent distress HEENT: PERRL/EOMI, normal ENT inspection, pharynx normal Neck: non-tender, full range of motion, supple, normal inspection Respiratory: chest non-tender, lungs clear, normal breath sounds, no respiratory distress, no accessory muscle use Cardiovascular: normal peripheral pulses, regular rate, rhythm Gastrointestinal: normal bowel sounds, non tender, soft, no pulsatile mass Rectal: deferred Extremities: normal range of motion, non-tender, no calf tenderness, normal capillary refill Back: no CVA tenderness, no vertebral tenderness 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, no motor/sensory deficits, alert, normal mood/affect, oriented x 3 Skin: normal color, warm/dry Progress/Results/Core Measures Results/Orders Lab Results Laboratory Tests Test 01/21/22 09:15 01/21/22 09:50 Range/Units White Blood Count 8.9 4.3-11.0 10^3/uL Red Blood Count 5.35 4.30-5.52 10^6/uL Hemoglobin 15.0 13.3-17.7 g/dL Hematocrit 45 40-54 % Mean Corpuscular Volume 84 80-99 fL Mean Corpuscular Hemoglobin 28 25-34 pg Mean Corpuscular Hemoglobin Concent 33 32-36 g/dL Red Cell Distribution Width 12.9 10.0-14.5 % Platelet Count 348 130-400 10^3/uL Mean Platelet Volume 9.5 9.0-12.2 fL Immature Granulocyte % (Auto) 0 % Neutrophils (%) (Auto) 64 42-75 % Lymphocytes (%) (Auto) 24 12-44 % Monocytes (%) (Auto) 8 0-12 % Eosinophils (%) (Auto) 4 0-10 % Basophils (%) (Auto) 1 0-10 % Neutrophils # (Auto) 5.7 1.8-7.8 10^3/uL Lymphocytes # (Auto) 2.1 1.0-4.0 10^3/uL Monocytes # (Auto) 0.7 0.0-1.0 10^3/uL Eosinophils # (Auto) 0.3 0.0-0.3 10^3/uL Basophils # (Auto) 0.1 0.0-0.1 10^3/uL Immature Granulocyte # (Auto) 0.0 0.0-0.1 10^3/uL Sodium Level 139 135-145 MMOL/L Potassium Level 3.9 3.6-5.0 MMOL/L Chloride Level 106 98-107 MMOL/L Carbon Dioxide Level 23 21-32 MMOL/L Anion Gap 10 5-14 MMOL/L Blood Urea Nitrogen 15 7-18 MG/DL Creatinine 0.95 0.60-1.30 MG/DL Estimat Glomerular Filtration Rate 115 BUN/Creatinine Ratio 16 Glucose Level 92 70-105 MG/DL Calcium Level 9.5 8.5-10.1 MG/DL Corrected Calcium 9.4 8.5-10.1 MG/DL Total Bilirubin 0.2 0.1-1.0 MG/DL Aspartate Amino Transf (AST/SGOT) 20 5-34 U/L Alanine Aminotransferase (ALT/SGPT) 21 0-55 U/L Alkaline Phosphatase 105 40-136 U/L Total Protein 7.6 6.4-8.2 GM/DL Albumin 4.1 3.2-4.5 GM/DL Lipase 33 8-78 U/L Urine Color YELLOW Urine Clarity CLEAR Urine pH 6.0 5-9 Urine Specific [place] 1.025 H 1.016-1.022 Urine Protein NEGATIVE NEGATIVE Urine Glucose (UA) NEGATIVE NEGATIVE Urine Ketones NEGATIVE NEGATIVE Urine Nitrite NEGATIVE NEGATIVE Urine Bilirubin NEGATIVE NEGATIVE Urine Urobilinogen 0.2 < = 1.0 MG/DL Urine Leukocyte Esterase NEGATIVE NEGATIVE Urine RBC (Auto) NEGATIVE NEGATIVE Urine RBC NONE /HPF Urine WBC 0-2 /HPF Urine Squamous Epithelial Cells NONE /HPF Urine Crystals NONE /LPF Urine Bacteria NEGATIVE /HPF Urine Casts NONE /LPF Urine Mucus SMALL H /LPF Urine Culture Indicated NO My Orders Orders - NISREEN LAU MD Comprehensive Metabolic Panel (01/21/22 09:13) Lipase (01/21/22 09:13) Ua Culture If Indicated (01/21/22 09:13) Ed Iv/Invasive Line Start (01/21/22 09:13) Cbc With Automated Diff (01/21/22 09:13) Ns Iv 1000 Ml (Sodium Chloride 0.9%) (01/21/22 09:13) Ondansetron Injection (Zofran Injectio (01/21/22 09:13) Vital Signs/I&O 01/21/22 01/21/22 09:00 10:34 Temp 36.1 Pulse 59 81 Resp 17 17 B/P (MAP) 126/65 (85) 127/73 Pulse Ox 99 O2 Delivery Room Air Room Air Progress Progress Note #1: Progress Note Reassured patient that his vital signs and exam appear Benign. This may be from something he ate but since his fiance has eaten the same things this less likely. This may be a stomach virus or irritation causing his symptoms but we can check basic labs and try Zofran for nausea, NS 1 Liter for IVF for hydration. Differential diagnosis includes viral gastroenteritis, food poisoning, cholecystitis, appendicitis, diverticulitis, colitis, viral syndrome Progress Note #2: Progress Note CBC and chemistry without any acute significant abnormality. Patient able to urinate after given a liter of normal saline. He continues to feel well and has had no emesis here in the ED. We will anticipate discharge to home with prescription for Zofran ODT tablets and encourage fluids. Progress Note #3: Progress Note UA elevated specific gravity of 1.025. The urinalysis did not demonstrate any signs of UTI. Will discharged home to encourage fluids and use Zofran as needed for nausea and vomiting. Should be cleared to return to work tomorrow provided he does not have continued emesis. Encouraged to establish care with a primary care provider and follow-up for continued concerns Departure Impression Primary Impression: Nausea vomiting and diarrhea Disposition: HOME, SELF-CARE Condition: Stable Departure-Patient Inst. Decision time for Depature: 10:24 Referrals: NO,LOCAL PHYSICIAN (PCP) Primary Care Physician [facility] [phone] call to get established with primary provider Patient Instructions: Diarrhea, Adult ED, Full Liquid Diet, Nausea and Vomiting, Adult ED, Viral Gastroenteritis, Adult (DC) Add. Discharge Instructions: Try to drinking fluids and electrolyte drinks to stay hydrated. After 12 to 24 hours of tolerating liquids without vomiting you could try adva ncing to bland foods such as BRAT diet, B for bananas, R for rice, A for applesauce, T for toast. Use the dissolving nausea tablets to help keep your stomach settled. Call and get established with a primary care provider. All discharge instructions reviewed with patient and/or family. Voiced understanding. Scripts Ondansetron (Ondansetron Odt) 4 Mg Tab.rapdis 4 MG PO Q6H PRN for NAUSEA/VOMITING for 5 Days, #20 TAB 0 Refills Prov: NISREEN LAU MD 01/21/22 Work/School Note: Work Release Form Date Seen in the Emergency Department: Jan 21, 2022 Return to Work: Jan 22, 2022 Restrictions: Return-No Vomiting(24hrs) NISREEN LAU MD Jan 21, 2022 09:19
[2022-01-21 09:27] LABS: BASOPHILS # (AUTO) 0.1 10^3/uL (0.0-0.1); BASOPHILS % (AUTO) 1 % (0-10); EOSINOPHILS # (AUTO) 0.3 10^3/uL (0.0-0.3); EOSINOPHILS % (AUTO) 4 % (0-10); HEMATOCRIT 45 % (40-54); LYMPHOCYTES # (AUTO) 2.1 10^3/uL (1.0-4.0); LYMPHOCYTES % (AUTO) 24 % (12-44); MEAN CORPUSCULAR HEMOGLOBIN 28 pg (25-34); MEAN CORPUSCULAR HGB CONC 33 g/dL (32-36); MEAN CORPUSCULAR VOLUME 84 fL (80-99); MEAN PLATELET VOLUME 9.5 fL (9.0-12.2); MONOCYTES # (AUTO) 0.7 10^3/uL (0.0-1.0); MONOCYTES % (AUTO) 8 % (0-12); NEUTROPHILS # (AUTO) 5.7 10^3/uL (1.8-7.8); NEUTROPHILS % (AUTO) 64 % (42-75); PLATELET COUNT 348 10^3/uL (130-400); WHITE BLOOD COUNT 8.9 10^3/uL (4.3-11.0)
[2022-01-21 09:53] LABS: CREATININE SERUM 0.95 MG/DL (0.60-1.30); POTASSIUM 3.9 MMOL/L (3.6-5.0)
[2022-01-21 09:54] LABS: ALBUMIN 4.1 GM/DL (3.2-4.5); BILIRUBIN,TOTAL 0.2 MG/DL (0.1-1.0); CALCIUM 9.5 MG/DL (8.5-10.1); TOTAL PROTEIN 7.6 GM/DL (6.4-8.2)
[2022-01-21] MEDS ORDERED: ONDA4TAB11 PO (10:07)
[2022-01-21 10:08] LABS: BILIRUBIN,URINE NEGATIVE (NEGATIVE); CLARITY,URINE CLEAR; COLOR,URINE YELLOW; GLUCOSE, URINE (UA) NEGATIVE (NEGATIVE); KETONES,URINE NEGATIVE (NEGATIVE); LEUKOCYTE ESTERASE ,URINE NEGATIVE (NEGATIVE); NITRITE,URINE NEGATIVE (NEGATIVE); PROTEIN,URINE NEGATIVE (NEGATIVE)
[2022-01-21 10:18] LABS: BACTERIA,URINE NEGATIVE /HPF; WBC,URINE 0-2 /HPF
[2022-01-21 10:34] VITALS: BP 127/73
== END 2022-01-21 10:34 | disposition home or self-care (01) ==
LOC: EDUNIT# 08:54 → ER FS 08:57
DX: R11.2 Nausea with vomiting, unspecified (principal); R19.7 Diarrhea, unspecified; Z86.16 Personal history of COVID-19
CPT/HCPCS: 36415; 80053; 81000; 83690; 85025

== ENCOUNTER 2022-05-16 18:22 | Emergency (ER) | payer SELFPAY ==
[~2022-05-16] VITALS: Ht 175.3 cm; Wt 113.5 kg
[2022-05-16 18:25] VITALS: BP 126/73
[2022-05-16] MEDS ORDERED: FAMOTIDINE 20 MG (PEPCID) TABLET PO STA (18:39)
--- NOTE | 2022-05-16 18:42 | ED Chest Pain ---
General Chief Complaint: Chest Pain Stated Complaint: CP,AMS Source: patient Exam Limitations: no limitations History of Present Illness Date Seen by Provider: May 16, 2022 Time Seen by Provider: 18:25 Initial Comments 26-year-old male with past medical history of GERD coming in due to chest discomfort. Started about an hour prior to arrival now after he was vaping in the car. He typically vapes nicotine and has been doing that for some time now. The pain sometimes was like a burning and he does have GERD. He has been taking Ivania-[place] which did not help at this time. Denies any cardiac history, no DVT or PE, no lower extremity pain or swelling, no recent surgery in the past couple months, no hemoptysis, no shortness of breath, abdominal pain, nausea, vomiting, diarrhea, weakness, numbness, or any other concerns. Currently barely having any discomfort at all. Allergies and Home Medications Allergies Coded Allergies: alprazolam (Verified Allergy, Unknown, 08/18/21) Patient Home Medication List Home Medication List Reviewed: Yes Ondansetron (Ondansetron Odt) 4 Mg Tab.rapdis, 4 MG PO Q6H PRN for NAUSEA /VOMITING Prescribed by: NISREEN LAU on 01/21/22 1007 Review of Systems Review of Systems Constitutional: No fever EENTM: No Blurred Vision Respiratory: Denies Cough Cardiovascular: Chest Pain Gastrointestinal: Denies Abdominal Pain Genitourinary: No Symptoms Reported Musculoskeletal: no symptoms reported Skin: no symptoms reported Psychiatric/Neurological: No Symptoms Reported Endocrine: No Symptoms Reported Hematologic/Lymphatic: No Symptoms Reported All Other Systems Reviewed Negative Unless Noted: Yes Past Vtooysv-Vynjox-Ccdthw Hx Patient Social History Use of E-Cig and/or Vaping dev: Yes E-Cig or Vaping type used: Nicotine Immunizations Up To Date First/Initial COVID19 Vaccinat: Not currently vaccinated Past Medical History Surgery/Hospitalization HX: MRSA Surgeries: Yes (lithotripsy) Physical Exam Vital Signs Vital Signs - First Documented 05/16/22 18:25 Temp 36.2 Pulse 90 Resp 16 B/P (MAP) 126/73 (90) Pulse Ox 97 O2 Delivery Room Air O2 Flow Rate 0 Capillary Refill : Height, Weight, BMI Height: '" Weight: lbs. oz. kg; 34.00 BMI Method: General Appearance: No Apparent Distress, WD/WN HEENT: PERRL/EOMI, Normal ENT Inspection, Pharynx Normal Neck: Full Range of Motion, Normal Inspection, Non Tender, Supple Respiratory: Chest Non Tender, Lungs Clear, Normal Breath Sounds, No Accessory Muscle Use, No Respiratory Distress Cardiovascular: Regular Rate, Rhythm, No Edema, Normal Peripheral Pulses Gastrointestinal: Normal Bowel Sounds, Non Tender, Soft; No Distended, No Guarding Extremity: Normal Capillary Refill, Normal Inspection, Normal Range of Motion, Non Tender, No Calf Tenderness, No Pedal Edema Neurologic/Psychiatric: Alert, No Motor/Sensory Deficits, Normal Mood/Affect Skin: Normal Color, Warm/Dry Lymphatic: No Adenopathy Progress/Results/Core Measures Results/Orders Lab Results Laboratory Tests Test 05/16/22 18:32 Range/Units White Blood Count 11.1 H 4.3-11.0 10^3/uL Red Blood Count 5.47 4.30-5.52 10^6/uL Hemoglobin 15.3 13.3-17.7 g/dL Hematocrit 46 40-54 % Mean Corpuscular Volume 84 80-99 fL Mean Corpuscular Hemoglobin 28 25-34 pg Mean Corpuscular Hemoglobin Concent 33 32-36 g/dL Red Cell Distribution Width 12.9 10.0-14.5 % Platelet Count 373 130-400 10^3/uL Mean Platelet Volume 9.9 9.0-12.2 fL Immature Granulocyte % (Auto) 0 % Neutrophils (%) (Auto) 63 42-75 % Lymphocytes (%) (Auto) 25 12-44 % Monocytes (%) (Auto) 8 0-12 % Eosinophils (%) (Auto) 4 0-10 % Basophils (%) (Auto) 1 0-10 % Neutrophils # (Auto) 7.0 1.8-7.8 10^3/uL Lymphocytes # (Auto) 2.8 1.0-4.0 10^3/uL Monocytes # (Auto) 0.9 0.0-1.0 10^3/uL Eosinophils # (Auto) 0.4 H 0.0-0.3 10^3/uL Basophils # (Auto) 0.1 0.0-0.1 10^3/uL Immature Granulocyte # (Auto) 0.0 0.0-0.1 10^3/uL Prothrombin Time 12.4 12.2-14.7 SEC INR Comment 0.9 0.8-1.4 Activated Partial Thromboplast Time 28 24-35 SEC Sodium Level 140 135-145 MMOL/L Potassium Level 4.2 3.6-5.0 MMOL/L Chloride Level 103 98-107 MMOL/L Carbon Dioxide Level 26 21-32 MMOL/L Anion Gap 11 5-14 MMOL/L Blood Urea Nitrogen 20 H 7-18 MG/DL Creatinine 1.05 0.60-1.30 MG/DL Estimat Glomerular Filtration Rate 102 BUN/Creatinine Ratio 19 Glucose Level 103 70-105 MG/DL Calcium Level 9.9 8.5-10.1 MG/DL Corrected Calcium 9.6 8.5-10.1 MG/DL Magnesium Level 1.9 1.6-2.4 MG/DL Total Bilirubin 0.3 0.1-1.0 MG/DL Aspartate Amino Transf (AST/SGOT) 22 5-34 U/L Alanine Aminotransferase (ALT/SGPT) 26 0-55 U/L Alkaline Phosphatase 115 40-136 U/L Troponin I < 0.30 <0.30 NG/ML Total Protein 8.2 6.4-8.2 GM/DL Albumin 4.4 3.2-4.5 GM/DL My Orders Orders - JOSESITO ALVARENGA MD Cbc With Automated Diff (05/16/22 18:39) Magnesium (05/16/22 18:39) Chest 1 View Ap/Pa Only (05/16/22 18:39) Ekg Tracing (05/16/22 18:39) Comprehensive Metabolic Panel (05/16/22 18:39) Protime With Inr (05/16/22 18:39) Partial Thromboplastin Time (05/16/22 18:39) O2 (05/16/22 18:39) Monitor-Rhythm Ecg Trace Only (05/16/22 18:39) Ed Iv/Invasive Line Start (05/16/22 18:39) Troponin I Fs (05/16/22 18:39) Lidocaine 2% Viscous 15 Ml (Xylocaine Vi (05/16/22 18:45) Famotidine Tablet (Pepcid Tablet) (05/16/22 18:39) Antacid Suspension (Mylanta Suspension (05/16/22 18:45) Medications Given in ED Current Medications Medications Dose Ordered Sig/Victor Manuel Route Start Time Stop Time Status Last Admin Dose Admin Al Hydrox/Mg Hydrox/Simethicone 30 ml ONCE ONCE PO 05/16/22 18:45 05/16/22 18:46 DC 05/16/22 18:53 30 ML Lidocaine HCl 15 ml ONCE ONCE PO 05/16/22 18:45 05/16/22 18:46 DC 05/16/22 18:53 15 ML Vital Signs/I&O 05/16/22 05/16/22 18:25 18:25 Temp 36.2 Pulse 90 Resp 16 B/P (MAP) 126/73 (90) Pulse Ox 97 97 O2 Delivery Room Air Room Air O2 Flow Rate 0 Progress Progress Note : Progress Note 26-year-old male with above history coming in due to chest pain. ABCs were intact and vitals were stable on presentation. Physical exam reassuring including no focal abnormalities. EKG with no acute ischemic changes. Chest x- ray with no acute findings. He is low risk for PE per [place] criteria and is PERC negative. He be very low risk at his age for any type of legitimate cardiac disease. Troponin is negative. Discomfort is gone at this time. I believe it is likely a nonlife threatening cause for his chest pain at this time. I believe he is stable for discharge with outpatient follow-up. He was sent home with strict return precautions Initial ECG Impression Date: May 16, 2022 Initial ECG Impression Time: 18:25 Initial ECG Rate: 81 Initial ECG Rhythm: Normal Sinus Comment Narrow QRS, normal axis, no significant ST changes or T wave abnormalities Diagnostic Imaging Diagonstic Imaging: Xray (chest) Comments NAME: JOI CHAN [facility] REC#: [id number] PT STATUS: REG ER : 1995 PHYSICIAN: JOSESITO ALVARENGA MD ADMIT DATE: 05/16/22/ER FS Draft Date of Exam:05/16/22 CHEST 1 VIEW AP/PA ONLY INDICATION: Chest pain. Portable AP view of the chest is obtained. COMPARISON: No previous study is available for comparison at this time. FINDINGS: Heart size and pulmonary vasculature are within normal limits, and the lungs are clear, bilaterally. IMPRESSION: Unremarkable chest. Dictated on workstation # [id number] Dict: 05/16/22 1850 Trans: 05/16/221852 [id number] Interpreted by: MARGOTH GALEANA MD Electronically signed by: Departure Impression Primary Impression: Chest pain Qualified Codes: R07.82 - Intercostal pain Disposition: 01 HOME, SELF-CARE Condition: Stable Departure-Patient Inst. Decision time for Depature: 19:11 Referrals: [facility] [place] NO,LOCAL PHYSICIAN (PCP) Primary Care Physician Patient Instructions: Chest Pain That Is Not Caused by the Heart (DC) Add. Discharge Instructions: Your EKG looks good, your labs look good and it does not appear like you are having a heart attack. Your chest x-ray is clear and it does not appear like at this time you have had any significant damage from the vaping today. It is always possible over time this will damage your lungs and your heart. It is always a recommendation to stop this if you are able to. We recommend following up with your regular doctor in the next couple days, if you do not have one you can call [facility] his number is in this paperwork Work/School Note: Work Release Form Date Seen in the Emergency Department: May 16, 2022 Return to Work: May 17, 2022 Restrictions: No Restrictions JOSESITO ALVARENGA MD May 16, 2022 18:41
[2022-05-16 18:43] LABS: BASOPHILS # (AUTO) 0.1 10^3/uL (0.0-0.1); BASOPHILS % (AUTO) 1 % (0-10); EOSINOPHILS # (AUTO) 0.4 10^3/uL (0.0-0.3); EOSINOPHILS % (AUTO) 4 % (0-10); HEMATOCRIT 46 % (40-54); HEMOGLOBIN 15.3 g/dL (13.3-17.7); LYMPHOCYTES # (AUTO) 2.8 10^3/uL (1.0-4.0); LYMPHOCYTES % (AUTO) 25 % (12-44); MEAN CORPUSCULAR HEMOGLOBIN 28 pg (25-34); MEAN CORPUSCULAR HGB CONC 33 g/dL (32-36); MEAN CORPUSCULAR VOLUME 84 fL (80-99); MEAN PLATELET VOLUME 9.9 fL (9.0-12.2); MONOCYTES # (AUTO) 0.9 10^3/uL (0.0-1.0); MONOCYTES % (AUTO) 8 % (0-12); NEUTROPHILS % (AUTO) 63 % (42-75); PLATELET COUNT 373 10^3/uL (130-400); WHITE BLOOD COUNT 11.1 10^3/uL (4.3-11.0)
[2022-05-16] MEDS ORDERED: ANTACID SUSP 30 ML UDC (MYLANTA) PO ONE (18:45)
[2022-05-16] MEDS ORDERED: LIDOCAINE 2% VISCOUS 15 ML UDC PO ONE (18:45)
[2022-05-16 18:53] LABS: INR 0.9 (0.8-1.4); PROTHROMBIN TIME PATIENT 12.4 SEC (12.2-14.7)
--- NOTE | 2022-05-16 18:53 | Diagnostic Imaging Report ---
INDICATION: Chest pain. Portable AP view of the chest is obtained. COMPARISON: No previous study is available for comparison at this time. FINDINGS: Heart size and pulmonary vasculature are within normal limits, and the lungs are clear, bilaterally. IMPRESSION: Unremarkable chest. Dictated by: Dictated on workstation # [id number]
[2022-05-16 19:02] LABS: ALBUMIN 4.4 GM/DL (3.2-4.5); BILIRUBIN,TOTAL 0.3 MG/DL (0.1-1.0); CALCIUM 9.9 MG/DL (8.5-10.1); CREATININE SERUM 1.05 MG/DL (0.60-1.30); MAGNESIUM 1.9 MG/DL (1.6-2.4); POTASSIUM 4.2 MMOL/L (3.6-5.0); TOTAL PROTEIN 8.2 GM/DL (6.4-8.2)
== END 2022-05-16 19:19 | disposition home or self-care (01) ==
LOC: EDUNIT# 18:22 → ER FS 18:23
DX: R07.89 Other chest pain (principal); F17.290 Nicotine dependence, other tobacco product, uncomplicated; Z28.310 Unvaccinated for COVID-19
CPT/HCPCS: 36415; 71045; 80053; 83735; 84484; 85025; 85610; 85730; 93005; 93041